=== PATIENT | female | born 1995 | race Caucasian/White ===

== ENCOUNTER 2020-12-30 18:09 | Emergency (ER) | payer OTHER ==
[2020-12-30] MEDS ORDERED: DICLOFENAC SODI75 MG PO (20:00)
== END 2020-12-30 20:07 | disposition home or self-care (01) ==
LOC: FER 18:09
DX: S80.01XA Contusion of right knee, initial encounter (principal); F17.210 Nicotine dependence, cigarettes, uncomplicated; W01.0XXA Fall on same level from slipping, tripping and stumbling without subsequent striking against object, initial encounter
CPT/HCPCS: 73560